=== PATIENT | male | born 2000 | race Hispanic/Latino ===

== ENCOUNTER 2022-02-01 19:58 | Emergency (ER) | payer SELFPAY ==
[~2022-02-01] VITALS: Ht 172.7 cm; Wt 79.5 kg
[2022-02-01 19:58] VITALS: BP 134/87
[2022-02-01] MEDS ORDERED: LIDOCAINE 2% MDV 20ML VIAL SC ONE (20:45)
== END 2022-02-01 21:08 | disposition home or self-care (01) ==
LOC: M ED 19:58
DX: S61.210A Laceration without foreign body of right index finger without damage to nail, initial encounter (principal); W25.XXXA Contact with sharp glass, initial encounter; F10.10 Alcohol abuse, uncomplicated; Y92.009 Unspecified place in unspecified non-institutional (private) residence as the place of occurrence of the external cause; Y93.89 Activity, other specified; Y99.9 Unspecified external cause status

== ENCOUNTER 2022-02-15 13:47 | Emergency (ER) | payer SELFPAY ==
[~2022-02-15] VITALS: Ht 165.1 cm; Wt 82.0 kg
[2022-02-15 15:44] VITALS: BP 126/80
== END 2022-02-15 15:49 | disposition home or self-care (01) ==
LOC: M ED 13:47
DX: Z48.02 Encounter for removal of sutures (principal)